=== PATIENT | female | born 1985 | race Caucasian/White ===

== ENCOUNTER 2016-12-30 18:51 | Emergency (ER) | payer OTHER ==
[~2016-12-30] VITALS: Ht 162.6 cm; Wt 63.5 kg
[2016-12-30 19:42] VITALS: Ht 162.6 cm; Wt 63.5 kg
--- NOTE | 2016-12-30 21:05 | ERD ---
ER Documentation Chief Complaint Date/Time DATE: 12/30/16 TIME: 20:58 Chief Complaint palpitations x 2 weeks; no cp or sob HPI 31-year-old otherwise healthy female presents to the emergency department complaining of intermittent heart palpitations 2 weeks, increasing in frequency. Patient states that the palpitations occur at random and the last up to 5 minutes at a time. Patient states she now experiences her symptoms daily. Patient notes associated nausea and vomiting 1 yesterday. patient experienced the palpitations last night while taking a bath and then again will try to fall asleep patient states she last experienced the palpitations at 7:00 this evening while at rest. Patient denies any chest pain, or shortness of breath. Patient denies any prolonged immobilization, recent travel, leg swelling, or redness. Patient denies any cardiac history but states both her mom and her grandma were diagnosed with high blood pressure. Patient's last normal period was 1 month ago and normal for her. Patient denies any abdominal pain, dysuria, hematuria, vaginal discharge, recent trauma, or illness ROS All systems reviewed and are negative except as per history of present illness. PMhx/Soc Medical and Surgical Hx: pt denies Medical Hx, pt denies Surgical Hx History of Surgery: No Anesthesia Reaction: No Hx Neurological Disorder: No Hx Respiratory Disorders: No Hx Cardiac Disorders: No Hx Psychiatric Problems: No Hx Miscellaneous Medical Probl: No Hx Alcohol Use: No Hx Substance Use: No Hx Tobacco Use: No Smoking Status: Never smoker Physical Exam Vitals Vital Signs Date Time Temp Pulse Resp B/P Pulse Ox O2 Delivery O2 Flow Rate FiO2 12/30/16 19:42 98.5 68 18 147/78 99 Physical Exam Const: Well-developed, well-nourished, in no acute Head: Atraumatic Eyes: Normal Conjunctiva ENT: Normal External Ears, Nose and Mouth. Neck: Full range of motion..~ No meningismus. Resp: Clear to auscultation bilaterally, no wheezes, rhonchi, or Cardio: Regular rate and rhythm, no murmurs, rubs Abd: Soft, non tender, non distended. Normal bowel sounds Skin: No petechiae or rashes Back: No midline or flank tenderness Ext: No cyanosis, or edema. No lower extremity edema, swelling or erythema Neur: Awake and alert Psych: Normal Mood and Affect Result Diagram: 12/30/16210312/30/162103 Results 24 hrs Laboratory Tests Test 12/30/16 21:00 12/30/16 21:04 Urine Bacteria RARE Urine Bilirubin NEGATIVE Urine Clarity CLEAR Urine Color LT. YELLOW Urine Glucose NEGATIVE% Urine Hemoglobin TRACE Urine Ketones 40 Urine Leukocyte Esterase NEGATIVE Urine Microscopic RBC 0-2/HPF Urine Microscopic WBC NONE SEEN/HPF Urine Nitrite NEGATIVE Urine Specific [place] 1.015 Urine Squamous Epithelial Cells RARE Urine Total Protein NEGATIVE Urine Urobilinogen 0.2 E.U./dL Urine pH 6.0 Alanine Aminotransferase (ALT/SGPT) 29IU/L Albumin 4.5g/dl Albumin/Globulin Ratio 1.66 Alkaline Phosphatase 56IU/L Anion Gap 17 Aspartate Amino Transf (AST/SGOT) 25IU/L Basophils # 0.110^3/ul Basophils % 1.1% Blood Urea Nitrogen 9mg/dl Calcium Level 9.5mg/dl Carbon Dioxide Level 25mmol/L Chloride Level 103mmol/L Creatinine 0.56mg/dl Direct Bilirubin 0.00mg/dl Eosinophils # 0.810^3/ul Eosinophils % 9.0% Globulin 2.70g/dl Glucose Level 81mg/dl Hematocrit 40.5% Hemoglobin 13.9g/dl Indirect Bilirubin 0.4mg/dl Lymphocytes # 3.210^3/ul Lymphocytes % 38.4% Mean Corpuscular Hemoglobin 29.0pg Mean Corpuscular Hemoglobin Concent 34.3g/dl Mean Corpuscular Volume 84.4fl Mean Platelet Volume 9.9fl Monocytes # 0.710^3/ul Monocytes % 8.7% Neutrophils # 3.610^3/ul Neutrophils % 42.6% Nucleated Red Blood Cells # 0.010^3/ul Nucleated Red Blood Cells % 0.0/100WBC Platelet Count 17817^3/UL Potassium Level 3.8mmol/L Red Blood Count 4.8010^6/ul Red Cell Distribution Width 12.4% Sodium Level 141mmol/L Thyroid Stimulating Hormone (TSH) 1.210MIU/L Total Bilirubin 0.4mg/dl Total Protein 7.2g/dl Troponin I < 0.012ng/ml White Blood Count 8.410^3/ul Procedures/MDM EKG: Rate/Rhythm: Normal Sinus Rhythm QRS, ST, T-waves: No changes consistent w/ acute ischemia Impression: No evidence of ischemia or arrhythmia CBC showed no evidence of systemic infection or severe anemia. CMP showed no evidence of electrolyte abnormalities, severe acidosis, alkalosis , renal failure, or liver disease. TSH within normal limits UA showed no evidence of acute infection or hematuria. Urine test was negative. Patient heart score 0 Given these findings, clinical picture consistent with heart palpitations of unknown etiology. I discussed with the patient the importance of following up with primary care for referral to cardiology for proper workup and management of her condition. I will supply the patient with a short course of rate control medication. Based on patient's history of present illness and physical examination the decision was made to discharge. The patient was re-evaluated after ED treatment and stabilizing measures, and symptoms have improved. There is no evidence of life threatening injuries or illnesses at this time. On re-examination, patient resting in no distress, stable vital signs, reports feeling better and safe for discharge with outpatient follow up with PMD in 1-2 days. Patient given return precautions. CARIDAD ROE PA-C Dec 30, 2016 21:05
[2016-12-30 21:17] LABS: ADD SCAN DIFF NO
[2016-12-30 21:20] LABS: BASOPHIL # 0.1 10^3/ul (0.0-0.1); BASOPHILS % 1.1 % (0.0-2.0); EOSINOPHILS # 0.8 10^3/ul (0.0-0.5); HEMATOCRIT 40.5 % (37.0-47.0); HEMOGLOBIN 13.9 g/dl (12.0-16.0); LYMPHOCYTES # 3.2 10^3/ul (0.8-2.9); LYMPHOCYTES % 38.4 % (15.0-51.0); MEAN CORPUSCULAR HGB CONC 34.3 g/dl (32.0-37.0); MEAN CORPUSCULAR VOLUME 84.4 fl (82.0-101.0); MEAN PLATELET VOLUME 9.9 fl (7.4-10.4); MONOCYTE # 0.7 10^3/ul (0.3-0.9); MONOCYTES % 8.7 % (0.0-11.0); NEUTROPHIL # 3.6 10^3/ul (1.6-7.5); NEUTROPHILS % 42.6 % (39.0-77.0); PLATELET COUNT 294 10^3/UL (140-415); RED CELL DISTRIBUTION WIDTH 12.4 % (11.5-14.5); WHITE BLOOD COUNT 8.4 10^3/ul (4.8-10.8)
[2016-12-30 21:26] LABS: ADD UMIC YES; URINE BILIRUBIN (Dip) NEGATIVE (NEGATIVE); URINE BLOOD (Dip) TRACE (NEGATIVE); URINE COLOR LT. YELLOW (YELLOW); URINE GLUCOSE (Dip) NEGATIVE (NEGATIVE); URINE KETONES (Dip) 40 (NEGATIVE); URINE LEUKOCYTE ESTERASE (Dip) NEGATIVE (NEGATIVE); URINE NITRITE (Dip) NEGATIVE (NEGATIVE); URINE TOTAL PROTEIN (Dip) NEGATIVE (NEGATIVE); URINE UROBILINOGEN (Dip) 0.2 E.U./dL (0.1-1.0)
[2016-12-30 21:42] LABS: BACTERIA,URINE RARE; SQUAMOUS EPITHELIAL CELL,UR RARE; URINE RBCS 0-2 /HPF (0)
[2016-12-30 21:45] LABS: ALBUMIN 4.5 g/dl (3.3-4.9)
[2016-12-30 21:46] LABS: CHLORIDE 103 mmol/L (97-110); POTASSIUM 3.8 mmol/L (3.5-5.1); SODIUM 141 mmol/L (135-144)
[2016-12-30 21:48] LABS: ANION GAP 17 (8-16); ASPARTATE AMINO TRANSFERASE 25 IU/L (15-46); BILIRUBIN,INDIRECT 0.4 mg/dl (0-1.1); BILIRUBIN,TOTAL 0.4 mg/dl (0.2-1.3); CARBON DIOXIDE 25 mmol/L (21-31); CREATININE 0.56 mg/dl (0.44-1.00)
[2016-12-30 21:49] LABS: ALANINE AMINOTRANSFERASE 29 IU/L (13-69); ALBUMIN/GLOBULIN RATIO 1.66; ALKALINE PHOSPHATASE 56 IU/L (42-121); BLOOD UREA NITROGEN 9 mg/dl (7-20); CALCIUM 9.5 mg/dl (8.4-10.2); GLUCOSE 81 mg/dl (70-220); TOTAL PROTEIN 7.2 g/dl (6.1-8.1)
[2016-12-30 22:02] LABS: TROPONIN-I < 0.012 ng/ml (0.00-0.12)
[2016-12-30] MEDS ORDERED: PROP20TA4 PO (22:19)
[2016-12-30 23:44] VITALS: BP 142/75; PULSE 57; RESP 16; TEMP 98.2
== END 2016-12-30 23:49 | disposition home or self-care (01) ==
LOC: FTE 18:51
DX: R00.2 Palpitations (principal)
CPT/HCPCS: 36415; 80053; 81001; 84443; 84484; 85025; Z7502; 81003